=== PATIENT | female | born 1965 | race African-American/Black ===

== ENCOUNTER 2019-01-19 11:17 | Emergency (ER) | payer SELFPAY ==
[~2019-01-19] VITALS: Ht 162.6 cm; Wt 100.0 kg
[~2019-01-19 11:17] MED LIST: LEVO25TA7; LOSA50TA3
[2019-01-19] MEDS ORDERED: NAPROXEN 250MG TABLET PO ONE (15:00)
[2019-01-19 17:04] VITALS: BP 160/89
== END 2019-01-19 17:09 | disposition home or self-care (01) ==
LOC: ER 11:17
DX: S90.31XA Contusion of right foot, initial encounter (principal); I10 Essential (primary) hypertension; M25.512 Pain in left shoulder; W25.XXXA Contact with sharp glass, initial encounter; Y93.9 Activity, unspecified; Y92.9 Unspecified place or not applicable; Z98.84 Bariatric surgery status
CPT/HCPCS: 73630; 99283